=== PATIENT | male | born 1995 | race American Indian/Alaskan Native ===

== ENCOUNTER 2018-06-09 19:31 | Emergency (ER) | payer OTHER ==
[2018-06-09 19:59] LABS: Amphetamine Screen,Urine PRESUMPTIVE NEGATIVE; Benzodiazepines Screen,Urine PRESUMPTIVE NEGATIVE; Cocaine Screen,Urine PRESUMPTIVE NEGATIVE; Methadone Screen,Urine PRESUMPTIVE NEGATIVE; Opiate Screen,Urine PRESUMPTIVE NEGATIVE
[2018-06-09 19:59] LABS: Basophils # (Auto) 0.1 K/mm3 (0.0-0.1); Basophils % (Auto) 1.3 % (0.0-1.8); Eosinophils # (Auto) 0.1 K/mm3 (0.0-0.4); Eosinophils % (Auto) 1.1 % (0.0-4.3); Hematocrit 45.7 % (35.5-45.6); Lymphocytes # (Auto) 2.6 K/mm3 (1.2-5.4); Lymphocytes % (Auto) 41.5 % (13.4-35.0); Mean Corpuscular HGB Conc 33 % (32-34); Mean Corpuscular Volume 94 fl (84-94); Monocytes # (Auto) 0.7 K/mm3 (0.0-0.8); Platelet Count 242 K/mm3 (140-440); Red Blood Count 4.87 M/mm3 (3.65-5.03); Red Cell Distribution Width 14.1 % (13.2-15.2)
--- NOTE | 2018-06-09 19:59 | Emergency Department Report ---
ED General Adult HPI - General Chief complaint: Medical Clearance Stated complaint: MEDICAL CLEARANCE Time Seen by Provider: 06/09/18 19:46 Source: patient, police, RN notes reviewed Mode of arrival: Ambulatory Limitations: Other (the patient is disorganized. The patient appears to be psychotic.) - History of Present Illness Initial comments: This is a 23-year-old male. The patient is not known to this provider previously. The patient is brought to the hospital for medical clearance. He was apparently outside, and was doing either handstands or backflips outside. He also apparently had a needle in his arm. Police department was contacted. A pparently, while in the police car, the patient began taking off his clothes, and started acting bizarrely. He is thus brought to the emergency room by police for evaluation. Currently, no police are available to obtain collateral information. The patient is not accompanied by friends or family. The patient is disorganized. He does not answer most open and close ended questions. He initially indicated that he was giving himself a shot of insulin and with the needle. He then states he does not know who diagnosed him with the need for insulin. Upon open-ended questioning, he admitted that he wanted to hurt himself. He told the nurse that he was also thinking about killing himself. The patient is very disorganized. He will not answer my questions as to whether or not he is having physical pain. He will not answer questions about or hallucinations. The patient is covering his face with his arm. He will follow some commands. The patient is not able to describe exacerbating or relieving factors, qualitative nature of his symptoms, or aggravating factors. -: unknown Radiation: other Quality: other Consistency: other Improves with: other Worsens with: other Associated Symptoms: other - Related Data Allergies Allergy/AdvReac Type Severity Reaction Status Date / Time No Known Allergies Allergy Unverified 06/09/18 19:35 ED Review of Systems ROS: Stated complaint: MEDICAL CLEARANCE Other details as noted in HPI Comment: Unobtainable due to pts medical conditions ED Past Medical Hx - Past Medical History Previous Medical History?: No - Surgical History Past Surgical History?: No - Social History Smoking Status: Current Every Day Smoker Substance Use Type: Alcohol, Marijuana ED Physical Exam - General Limitations: Other (she is disorganized and appears to be psychotic) General appearance: alert, in no apparent distress - Head Head exam: Present: atraumatic, normocephalic - Eye Eye exam: Present: normal appearance, EOMI. Absent: nystagmus - ENT ENT exam: Present: normal exam, normal orophraynx, mucous membranes moist, normal external ear exam - Neck Neck exam: Present: normal inspection, full ROM. Absent: tenderness, meningismus - Respiratory Respiratory exam: Present: normal lung sounds bilaterally. Absent: respiratory distress - Cardiovascular Cardiovascular Exam: Present: normal rhythm, bradycardia, normal heart sounds. Absent: tachycardia, irregular rhythm, systolic murmur, diastolic murmur, rubs, gallop - GI/Abdominal GI/Abdominal exam: Present: soft. Absent: distended, tenderness, guarding, rebound, rigid, pulsatile mass - Rectal Rectal exam: Present: deferred - Extremities Exam Extremities exam: Present: normal inspection, full ROM, other (2+ pulses noted in the bilateral upper, lower extremities. Compartments soft. No long bony ten derness. The pelvis is stable.). Absent: pedal edema, joint swelling, calf tenderness - Back Exam Back exam: Present: normal inspection, full ROM. Absent: tenderness, CVA tenderness (R), paraspinal tenderness, vertebral tenderness - Neurological Exam Neurological exam: Present: alert (the patient is awake. The patient follows commands.), other (there is no facial droop. The tongue is midline. Extraocular movements are intact bilaterally. 5 out of 5 strength in 4 extremities.) - Psychiatric Psychiatric exam: Present: anxious, flat affect, suicidal ideation - Skin Skin exam: Present: warm, dry, intact, normal color. Absent: rash ED Course Vital Signs 06/09/18 19:38 Temperature 98.4 F Pulse Rate 60 Respiratory 15 Rate Blood Pressure 143/71 O2 Sat by Pulse 99 Oximetry ED Medical Decision Making - Lab Data Result diagrams: 06/09/18 19:48 06/09/18 19:47 Vital Signs 06/09/18 19:38 Temperature 98.4 F Pulse Rate 60 Respiratory 15 Rate Blood Pressure 143/71 O2 Sat by Pulse 99 Oximetry Lab Results 06/09/18 06/09/18 06/09/18 Range/Units 19:43 19:43 19:47 WBC (4.5-11.0) K/mm3 RBC (3.65-5.03) M/mm3 Hgb (11.8-15.2) gm/dl Hct (35.5-45.6) % MCV (84-94) fl MCH (28-32) pg MCHC (32-34) % RDW (13.2-15.2) % Plt Count (140-440) K/mm3 Lymph % (Auto) (13.4-35.0) % [place] % (Auto) (0.0-7.3) % Eos % (Auto) (0.0-4.3) % Baso % (Auto) (0.0-1.8) % Lymph # (1.2-5.4) K/mm3 Traverse # (0.0-0.8) K/mm3 Eos # (0.0-0.4) K/mm3 Baso # (0.0-0.1) K/mm3 Seg Neutrophils % (40.0-70.0) % Seg Neutrophils # (1.8-7.7) K/mm3 Sodium (137-145) mmol/L Potassium (3.6-5.0) mmol/L Chloride (98-107) mmol/L Carbon Dioxide (22-30) mmol/L Anion Gap mmol/L BUN (9-20) mg/dL Creatinine (0.8-1.5) mg/dL Estimated GFR ml/min BUN/Creatinine Ratio % Glucose (75-100) mg/dL Calcium (8.4-10.2) mg/dL Total Creatine Kinase (55-170) units/L TSH (0.270-4.200) mlU/mL Urine Color Yellow (Yellow) Urine Turbidity Slightly-cloudy (Clear) Urine pH 6.0 (5.0-7.0) Ur Specific [place] 1.017 (1.003-1.030) Urine Protein <15 mg/dl (Negative) mg/dL Urine Glucose (UA) Neg (Negative) mg/dL Urine Ketones Neg (Negative) mg/dL Urine Blood Neg (Negative) Urine Nitrite Neg (Negative) Urine Bilirubin Neg (Negative) Urine Urobilinogen 4.0 (<2.0) mg/dL Ur Leukocyte Esterase Sm (Negative) Urine WBC (Auto) 7.0 H (0.0-6.0) /HPF Urine RBC (Auto) 4.0 (0.0-6.0) /HPF U Epithel Cells (Auto) 7.0 (0-13.0) /HPF Urine Bacteria (Auto) 2+ (Negative) /HPF Urine Mucus Few /HPF Salicylates < 0.3 L (2.8-20.0) mg/dL Urine Opiates Screen Presumptive negative Urine Methadone Screen Presumptive negative Acetaminophen (10.0-30.0) ug/mL Ur Barbiturates Screen Presumptive negative Ur Phencyclidine Scrn Presumptive negative Ur Amphetamines Screen Presumptive negative U Benzodiazepines Scrn Presumptive negative Urine Cocaine Screen Presumptive negative U Marijuana (THC) Screen Presumptive positive Drugs of Abuse Note Disclamer Plasma/Serum Alcohol (0-0.07) % 06/09/18 06/09/18 06/09/18 Range/Units 19:47 19:47 19:47 WBC (4.5-11.0) K/mm3 RBC (3.65-5.03) M/mm3 Hgb (11.8-15.2) gm/dl Hct (35.5-45.6) % MCV (84-94) fl MCH (28-32) pg MCHC (32-34) % RDW (13.2-15.2) % Plt Count (140-440) K/mm3 Lymph % (Auto) (13.4-35.0) % Traverse % (Auto) (0.0-7.3) % Eos % (Auto) (0.0-4.3) % Baso % (Auto) (0.0-1.8) % Lymph # (1.2-5.4) K/mm3 Traverse # (0.0-0.8) K/mm3 Eos # (0.0-0.4) K/mm3 Baso # (0.0-0.1) K/mm3 Seg Neutrophils % (40.0-70.0) % Seg Neutrophils # (1.8-7.7) K/mm3 Sodium 138 (137-145) mmol/L Potassium 4.1 (3.6-5.0) mmol/L Chloride 103.4 (98-107) mmol/L Carbon Dioxide 24 (22-30) mmol/L Anion Gap 15 mmol/L BUN 10 (9-20) mg/dL Creatinine 0.9 (0.8-1.5) mg/dL Estimated GFR > 60 ml/min BUN/Creatinine Ratio 11 % Glucose 85 (75-100) mg/dL Calcium 9.3 (8.4-10.2) mg/dL Total Creatine Kinase (55-170) units/L TSH (0.270-4.200) mlU/mL Urine Color (Yellow) Urine Turbidity (Clear) Urine pH (5.0-7.0) Ur Specific [place] (1.003-1.030) Urine Protein (Negative) mg/dL Urine Glucose (UA) (Negative) mg/dL Urine Ketones (Negative) mg/dL Urine Blood (Negative) Urine Nitrite (Negative) Urine Bilirubin (Negative) Urine Urobilinogen (<2.0) mg/dL Ur Leukocyte Esterase (Negative) Urine WBC (Auto) (0.0-6.0) /HPF Urine RBC (Auto) (0.0-6.0) /HPF U Epithel Cells (Auto) (0-13.0) /HPF Urine Bacteria (Auto) (Negative) /HPF Urine Mucus /HPF Salicylates (2.8-20.0) mg/dL Urine Opiates Screen Urine Methadone Screen Acetaminophen < 5.0 L (10.0-30.0) ug/mL Ur Barbiturates Screen Ur Phencyclidine Scrn Ur Amphetamines Screen U Benzodiazepines Scrn Urine Cocaine Screen U Marijuana (THC) Screen Drugs of Abuse Note Plasma/Serum Alcohol < 0.01 (0-0.07) % 06/09/18 06/09/18 06/09/18 Range/Units 19:48 19:54 19:54 WBC 6.2 (4.5-11.0) K/mm3 RBC 4.87 (3.65-5.03) M/mm3 Hgb 15.0 (11.8-15.2) gm/dl Hct 45.7 H (35.5-45.6) % MCV 94 (84-94) fl MCH 31 (28-32) pg MCHC 33 (32-34) % RDW 14.1 (13.2-15.2) % Plt Count 242 (140-440) K/mm3 Lymph % (Auto) 41.5 H (13.4-35.0) % Traverse % (Auto) 11.0 H (0.0-7.3) % Eos % (Auto) 1.1 (0.0-4.3) % Baso % (Auto) 1.3 (0.0-1.8) % Lymph # 2.6 (1.2-5.4) K/mm3 [place] # 0.7 (0.0-0.8) K/mm3 Eos # 0.1 (0.0-0.4) K/mm3 Baso # 0.1 (0.0-0.1) K/mm3 Seg Neutrophils % 45.1 (40.0-70.0) % Seg Neutrophils # 2.8 (1.8-7.7) K/mm3 Sodium (137-145) mmol/L Potassium (3.6-5.0) mmol/L Chloride (98-107) mmol/L Carbon Dioxide (22-30) mmol/L Anion Gap mmol/L BUN (9-20) mg/dL Creatinine (0.8-1.5) mg/dL Estimated GFR ml/min BUN/Creatinine Ratio % Glucose (75-100) mg/dL Calcium (8.4-10.2) mg/dL Total Creatine Kinase 357 H (55-170) units/L TSH 1.450 (0.270-4.200) mlU/mL Urine Color (Yellow) Urine Turbidity (Clear) Urine pH (5.0-7.0) Ur Specific [place] (1.003-1.030) Urine Protein (Negative) mg/dL Urine Glucose (UA) (Negative) mg/dL Urine Ketones (Negative) mg/dL Urine Blood (Negative) Urine Nitrite (Negative) Urine Bilirubin (Negative) Urine Urobilinogen (<2.0) mg/dL Ur Leukocyte Esterase (Negative) Urine WBC (Auto) (0.0-6.0) /HPF Urine RBC (Auto) (0.0-6.0) /HPF U Epithel Cells (Auto) (0-13.0) /HPF Urine Bacteria (Auto) (Negative) /HPF Urine Mucus /HPF Salicylates (2.8-20.0) mg/dL Urine Opiates Screen Urine Methadone Screen Acetaminophen (10.0-30.0) ug/mL Ur Barbiturates Screen Ur Phencyclidine Scrn Ur Amphetamines Screen U Benzodiazepines Scrn Urine Cocaine Screen U Marijuana (THC) Screen Drugs of Abuse Note Plasma/Serum Alcohol (0-0.07) % - EKG Data -: EKG Interpreted by Me EKG shows normal: sinus rhythm Rate: bradycardia - EKG Data When compared to previous EKG there are: previous EKG unavailable 06/09/18 21:23 This is a sinus bradycardia, with a borderline rightward axis deviation, early repolarization, high left ventricular voltage, this is an age-appropriate, demographic be appropriate EKG, this EKG is not consistent with ST elevation myocardial infarction. There is no prior EKG available. - Radiology Data Radiology results: report reviewed, image reviewed Noncontrast CT scan of the brain is negative for acute disease. - Medical Decision Making Differential diagnosis, including but not limited to: Psychosis, medical clearance for psychiatric placement Assessment and plan: 23-year-old gentleman with bizarre behavior, nonsensical thought pattern, articulated desire to harm himself, clearly suicidal, clearly cannot care for himself, requires 1013. I suspect a drug-induced psychosis. The patient is afebrile with reassuring vital signs. His screening laboratory studies are unremarkable. Urinalysis reviewed and appreciated. This is most likely either gonorrhea or chlamydia, given his young age. Cultures will be sent, he'll be covered empirically, a psychiatric consultation has been requested, at this point in time, the patient does not appear to have an immediate medical contraindication to psychiatric admission, evaluation, consultation and placement. CK is reviewed and appreciated, this does not meet the definition criteria for rhabdomyolysis, he has normal renal function, he has soft muscular compartments, and this will decrease on its own with oral hydration. This does not require repeat check at this point in time. Critical care attestation.: If time is entered above; I have spent that time in minutes in the direct care o f this critically ill patient, excluding procedure time. ED Disposition Clinical Impression: Psychosis Disposition: DC/TX-65 PSY HOSP/PSY UNIT Is pt being admited?: No Does the pt Need Aspirin: No Condition: Good Referrals: BRISEIDA FUNEZ MD [Primary Care Provider] - 3-5 Days
[2018-06-09 20:00] LABS: Bacteria,Urine 2+ /HPF (Negative); Bilirubin,Urine NEG (Negative); Blood,Urine NEG (Negative); Color,Urine Yellow (Yellow); Mucus,Urine FEW /HPF; Protein,Urine <15 mg/dL mg/dL (Negative)
[2018-06-09 20:16] LABS: Cannabinoid Screen,Urine PRESUMPTIVE POSITIVE
[2018-06-09 20:31] LABS: BUN/Creatinine Ratio 11; Blood Urea Nitrogen 10 mg/dL (9-20); Calcium 9.3 mg/dL (8.4-10.2); Hemolysis Index 19
--- NOTE | 2018-06-09 20:51 | Cat Scan Report ---
CT HEAD/BRAIN WO CON CLINICAL INDICATION: Male, 23 years of age. ams COMPARISON: None TECHNIQUE: Contiguous axial images were obtained from the vertex through the skull base.This CT exam was perform ed using one or more of the following dose reduction techniques: automated exposure control, adjustme nt of the mA and/or kV according to patient size, or use of iterative reconstruction technique. FINDINGS: No acute intracranial hemorrhage, midline shift, or extra-axial fluid collection. Ventricles and cis terns are normal in size and configuration for the patient's age. Hernandez white differentiation is main tained. Calvarium is grossly intact. Ocular globes are grossly unremarkable. Visualized paranasal sinuses and mastoid air cells are grossly clear. IMPRESSION: No grossly acute intracranial abnormality. This document is electronically signed by Alvino Frey DO., June 09 2018 08:49:13 PM ET
[2018-06-09] MEDS ORDERED: ROCEPHIN IM ONE (21:17)
[2018-06-09] MEDS ORDERED: XYLOCAINE 1% MPF 5 mL INFILTRATI ONE (21:17)
[2018-06-09] MEDS ORDERED: ZITHROMAX PO ONE (21:17)
--- NOTE | 2018-06-10 08:17 | Consultation ---
History of Present Illness - Reason for Consult Consult date: 06/10/18 Reason for consult: Mental Health Evaluation Requesting physician: FRANCHESKA WILLIAMSON - Chief Complaint Chief complaint: "The is nonverbal at this time" - History of Present Psychiatric Illness 23 y.o. AA male who presented to the ER for bizarre behavior. Today the patient refused to talk during the assessment. No gestures of SI/HI's. Medications and Allergies Allergies Allergy/AdvReac Type Severity Reaction Status Date / Time No Known Allergies Allergy Unverified 06/09/18 19:35 Home Medications Medication Instructions Recorded Confirmed Last Taken Type Unobtainable 06/10/18 06/10/18 Unknown History Active Meds: Active Medications Haloperidol Lactate (Haldol) 5 mg IM Q6HR PRN PRN Reason: Agitation Lorazepam (Ativan) 2 mg IM Q4HR PRN PRN Reason: Agitation Past psychiatric history - Past Medical History Past Medical History: other (Unable to obtain ) Past Surgical History: Other (Unable to obtain ) - past Psychiatric treatment and history psychiatric treatment history: Unable to obtain a psy hx and fam psy hx. - Social History Social history: other (Unable to obtain) Mental Status Exam - Vital signs Last Vital Signs Temp 98.8 F 06/10/18 04:00 Pulse 55 L 06/10/18 04:00 Resp 20 06/10/18 04:00 BP 113/66 06/10/18 04:00 Pulse Ox 99 06/10/18 04:00 - Exam Narrative exam: Unable to complete the MSE because of the patient refuse to cooperate. Results Result Diagrams: 06/09/18 19:48 06/09/18 19:47 Abnormal lab results 06/09/18 06/09/18 06/09/18 Range/Units 19:43 19:47 19:47 Hct (35.5-45.6) % Lymph % (Auto) (13.4-35.0) % Glenn % (Auto) (0.0-7.3) % Total Creatine Kinase (55-170) units/L Urine WBC (Auto) 7.0 H (0.0-6.0) /HPF Salicylates < 0.3 L (2.8-20.0) mg/dL Acetaminophen < 5.0 L (10.0-30.0) ug/mL 06/09/18 06/09/18 Range/Units 19:48 19:54 Hct 45.7 H (35.5-45.6) % Lymph % (Auto) 41.5 H (13.4-35.0) % Glenn % (Auto) 11.0 H (0.0-7.3) % Total Creatine Kinase 357 H (55-170) units/L Urine WBC (Auto) (0.0-6.0) /HPF Salicylates (2.8-20.0) mg/dL Acetaminophen (10.0-30.0) ug/mL All other labs normal. Assessment and Plan Assessment and plan: Impression: Today the patient refuse to talk during the assessment. Recommendation/Plan: Continue 1013 and reassess the patient in 24 hours. Dispo: The patient will be referred to inpatient psy services. Will staff with Dr Sandra Romeo.
[2018-06-10] MEDS: HALDOL IM PRN (10:55)
[2018-06-10] MEDS: ATIVAN IM PRN (10:57)
[2018-06-11] MEDS: HALDOL IM PRN (09:46)
[2018-06-11] MEDS: ATIVAN IM PRN (09:46)
--- NOTE | 2018-06-11 16:00 | Progress Note ---
Subjective - Reason for Consult Consult date: 06/11/18 Reason for consult: Psychiatry Follow-up - Chief Complaint Chief complaint: "I am okay" 23 y.o. AA male who presented to the ER for bizarre behavior. Today the patient is calm during the assessment. He appeared to be preoccupied throughout the interview. He pauses for several seconds before he answers questions, possible responding to some type of stimuli. He denies SI/HI's and VH's. He would confirm or deny AH's when asked. 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 Today the patient is calm during the assessment. The patient is experiencing perceptual disturbances. DDx: Substance Induced Psychosis Recommendation/Plan: Continue 1013 and start Zyprexa 2.5 mg Po HS for psychosis. Discussed possible metabolic side effects of Zyprexa with the shweta. leela Dispo: The patient will be referred to inpatient psy services. Will staff with Dr Sandra Romeo.
--- NOTE | 2018-06-12 14:17 | Progress Note ---
Subjective - Reason for Consult Consult date: 06/12/18 Reason for consult: Psychiatric Follow-up Evaluation - Chief Complaint Chief complaint: " a little tired" Patient is a 23 y.o. AA male who presented to the ER for bizarre behavior. Today the patient is calm during the assessment. He appears to be lethargic and has to be awaken several times throughout the assessment. Patient responses to questions are delayed/hesitant. He appeared to be preoccupied throughout the interview. Patient is guarded/withdrawn. He denies SI/HI's and VH's. 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 Today the patient is calm during the assessment. The patient is experiencing perceptual disturbances. He appears guarded, withdrawn, and internally preoccupied. Thought content impoverished. DDx: Substance Induced Psychosis Recommendation/Plan: 1. Continue 1013. 2. Continue Zyprexa 2.5 mg Po HS for psychosis. Discussed possible metabolic side effects of Zyprexa with the patients. Disposition: The patient will be referred to inpatient psychiatric services. Will staff with Dr. Sandra Romeo.
[2018-06-12] MEDS: ATIVAN IM PRN (15:10)
[2018-06-12] MEDS: HALDOL IM PRN (15:10)
[2018-06-13 03:26] VITALS: BP 110/80
== END 2018-06-13 03:25 ==
LOC: EEVIPCON 19:31 → ED 19:31
DX: F23 Brief psychotic disorder (principal); F17.200 Nicotine dependence, unspecified, uncomplicated; F12.10 Cannabis abuse, uncomplicated
CPT/HCPCS: 36415; 70450; 80048; 80307; 81001; 82550; 84443; 85025; 87086; 87591; 93005; 93010; 96372; 99285; G0480; J0696; J1630; J2060; 80320

== ENCOUNTER 2020-05-20 17:20 | Emergency (ER) | payer OTHER ==
[2020-05-20] MEDS ORDERED: LORazepam 2 MG/ML VIAL IM PRN (17:29)
[2020-05-20] MEDS ORDERED: HALOPERIDOL LACTATE 5 MG/1 ML INJ IM PRN (17:29)
--- NOTE | 2020-05-20 17:31 | Emergency Department Report ---
ED General Adult HPI - General Chief complaint: Psych Stated complaint: im fine why are you here? PUI?: No Time Seen by Provider: 05/20/20 17:29 Source: patient, EMS (Verbal report received from emergency medical services. EMS documentation not available at time of chart dictation ), RN notes reviewed Mode of arrival: Stretcher Limitations: Other (Disorganized behavior.) - History of Present Illness Initial comments: The patient was evaluated in the emergency department for symptoms described in the history of present illness. He/she was evaluated in the context of the global COVID-19 pandemic, which necessitated consideration that the patient might be at risk for infection with the virus that causes COVID-19. Institu tional protocols and algorithms that pertain to the evaluation of patients at risk for COVID-19 are in a state of rapid change based on information released by regulatory bodies including the CDC and federal and state organizations. These policies and algorithms were followed during the patient's care in the emergency department. Please note that these policies, procedures and recommendations changed on a rapid basis. This is a 25-year-old gentleman. I have evaluated this patient in the past. 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 The patient is brought to the hospital today by emergency medical services. EMS reports that they were contacted by [facility]. The patient is disorganized. He told me he is suicidal. He denies physical pain. He reports that he feels very anxious. He denies loss of taste and smell. He tells me that he is chronically suicidal. He tells me that he has tried to overdose on Cymbalta in the past. This patient has been on a 1013 in the past. I evaluated this patient in 2019 for presumed substance-induced psychosis. At that time, he had an unremarkable medical work-up. The patient is disorganized and psychotic, therefore, has difficulty describing the qualitative nature of his symptoms, exacerbating factors, relieving factors, or aggravating factors. This patient is not accompanied by friends or family at this time for collateral information. The patient denies physical pain at this time. He is asking to eat. -: unknown Radiation: other Quality: other Consistency: other Improves with: other Worsens with: other Associated Symptoms: other - Related Data Home Medications Medication Instructions Recorded Confirmed Last Taken buPROPion XL [Wellbutrin Xl] 150 mg PO QAM 05/20/20 05/20/20 Unknown Allergies Allergy/AdvReac Type Severity Reaction Status Date / Time No Known Allergies Allergy Unverified 06/09/18 19:35 ED Review of Systems ROS: Stated complaint: MH EVAL Other details as noted in HPI Comment: Unobtainable due to pts medical conditions (Disorganized behavior) Constitutional: denies: fever Respiratory: denies: cough Cardiovascular: denies: chest pain Gastrointestinal: denies: abdominal pain Psychiatric: anxiety, suicidal thoughts ED Past Medical Hx - Social History Smoking Status: Current Every Day Smoker Substance Use Type: Alcohol, Marijuana - Medications Home Medications: Home Medications Medication Instructions Recorded Confirmed Last Taken Type buPROPion XL [Wellbutrin Xl] 150 mg PO QAM 05/20/20 05/20/20 Unknown History ED Physical Exam - General Limitations: Other (Disorganized behavior) General appearance: anxious - Head Head exam: Present: atraumatic, normocephalic - Eye Eye exam: Present: normal appearance, PERRL, EOMI - ENT ENT exam: Present: normal exam, normal orophraynx, mucous membranes moist, normal external ear exam - Neck Neck exam: Present: normal inspection, full ROM. Absent: tenderness, meningismus - Respiratory Respiratory exam: Present: normal lung sounds bilaterally. Absent: respiratory distress, wheezes, rales, rhonchi, stridor, decreased breath sounds - Cardiovascular Cardiovascular Exam: Present: regular rate, normal rhythm, normal heart sounds. Absent: bradycardia, tachycardia, irregular rhythm, systolic murmur, diastolic murmur, rubs, gallop - GI/Abdominal GI/Abdominal exam: Present: soft. Absent: distended, tenderness, guarding, rebound, rigid, pulsatile mass - Rectal Rectal exam: Present: deferred - Extremities Exam Extremities exam: Present: normal inspection, full ROM, other (2+ pulses noted in the bilateral upper and lower extremities. There is no palpable cord. negative Homans sign. Muscular compartments are soft. The pelvis is stable.). Absent: pedal edema, calf tenderness - Back Exam Back exam: Present: normal inspection, full ROM. Absent: tenderness, CVA tenderness (R), CVA tenderness (L), paraspinal tenderness, vertebral tenderness - Neurological Exam Neurological exam: Present: alert, normal gait, other (No facial droop. Tongue midline. Extraocular movements intact bilaterally. Facial sensation intact to light touch in V1, V2, V3 distribution bilaterally. 5 and a 5 strength in 4 extremities. Sensation intact to light touch in 4 extremities.). Absent: motor sensory deficit - Psychiatric Psychiatric exam: Present: anxious, flat affect, suicidal ideation - Skin Skin exam: Present: warm, dry, intact, normal color. Absent: rash ED Course Vital Signs 05/20/20 05/20/20 18:15 19:30 Temperature 98.5 F 98.3 F Pulse Rate 65 60 Respiratory 16 18 Rate Blood Pressure 120/55 127/67 [Left] O2 Sat by Pulse 100 100 Oximetry - Reevaluation(s) Reevaluation #1: 05/20/20 18:42 Differential diagnosis, including but not limited to: Psychosis, medical clearance for psychiatric placement, disorganized behavior Assessment and plan: 25-year-old gentleman with bizarre affect, disorganized behavior, endorsement of suicidality, history of substance-induced psychosis, who is presenting likely with recurrent psychosis. Patient placed on hold status. Psychiatric consultation is requested. Appropriate laboratory studies ordered. EKG unremarkable. Physical examination unremarkable. Coronavirus testing ordered in anticipation of psychiatric placement. Reevaluation #2: 05/20/20 19:27 Laboratory studies unremarkable. Urinalysis pending. At this point in time, patient does not appear to have an immediate medical contraindication to psychiatric admission, evaluation, consultation and placement. Awaiting urinalysis and mental health evaluation. ED Medical Decision Making - Lab Data Result diagrams: 05/20/20 17:54 05/20/20 17:54 Vital Signs 05/20/20 18:15 Temperature 98.5 F Pulse Rate 65 Respiratory 16 Rate Blood Pressure 120/55 [Left] O2 Sat by Pulse 100 Oximetry Lab Results 05/20/20 05/20/20 Range/Units 17:54 17:54 WBC 5.7 (4.5-11.0) K/mm3 RBC 4.83 (3.65-5.03) M/mm3 Hgb 15.2 (11.8-15.2) gm/dl Hct 44.6 (35.5-45.6) % MCV 92 (84-94) fl MCH 32 (28-32) pg MCHC 34 (32-34) % RDW 13.2 (13.2-15.2) % Plt Count 190 (140-440) K/mm3 Sodium 137 (137-145) mmol/L Potassium 4.0 (3.6-5.0) mmol/L Chloride 102.5 (98-107) mmol/L Carbon Dioxide 24 (22-30) mmol/L Anion Gap 15 mmol/L BUN 11 (9-20) mg/dL Creatinine 1.0 (0.8-1.3) mg/dL Estimated GFR > 60 ml/min BUN/Creatinine Ratio 11 % Glucose 83 (75-100) mg/dL Calcium 9.3 (8.4-10.2) mg/dL Magnesium 1.80 (1.7-2.3) mg/dL Total Creatine Kinase 148 (55-170) units/L Vital Signs 05/20/20 18:15 Temperature 98.5 F Pulse Rate 65 Respiratory 16 Rate Blood Pressure 120/55 [Left] O2 Sat by Pulse 100 Oximetry Lab Results 05/20/20 05/20/20 05/20/20 Range/Units 17:54 17:54 17:54 WBC 5.7 (4.5-11.0) K/mm3 RBC 4.83 (3.65-5.03) M/mm3 Hgb 15.2 (11.8-15.2) gm/dl Hct 44.6 (35.5-45.6) % MCV 92 (84-94) fl MCH 32 (28-32) pg MCHC 34 (32-34) % RDW 13.2 (13.2-15.2) % Plt Count 190 (140-440) K/mm3 Sodium 137 (137-145) mmol/L Potassium 4.0 (3.6-5.0) mmol/L Chloride 102.5 (98-107) mmol/L Carbon Dioxide 24 (22-30) mmol/L Anion Gap 15 mmol/L BUN 11 (9-20) mg/dL Creatinine 1.0 (0.8-1.3) mg/dL Estimated GFR > 60 ml/min BUN/Creatinine Ratio 11 % Glucose 83 (75-100) mg/dL Calcium 9.3 (8.4-10.2) mg/dL Magnesium 1.80 (1.7-2.3) mg/dL Total Creatine Kinase 148 (55-170) units/L Salicylates < 0.3 L (2.8-20.0) mg/dL Acetaminophen (10.0-30.0) ug/mL [place] (0.0-1.2) mmol/L Plasma/Serum Alcohol (0-0.07) % 05/20/20 05/20/20 05/20/20 Range/Units 17:54 17:54 17:54 WBC (4.5-11.0) K/mm3 RBC (3.65-5.03) M/mm3 Hgb (11.8-15.2) gm/dl Hct (35.5-45.6) % MCV (84-94) fl MCH (28-32) pg MCHC (32-34) % RDW (13.2-15.2) % Plt Count (140-440) K/mm3 Sodium (137-145) mmol/L Potassium (3.6-5.0) mmol/L Chloride (98-107) mmol/L Carbon Dioxide (22-30) mmol/L Anion Gap mmol/L BUN (9-20) mg/dL Creatinine (0.8-1.3) mg/dL Estimated GFR ml/min BUN/Creatinine Ratio % Glucose (75-100) mg/dL Calcium (8.4-10.2) mg/dL Magnesium (1.7-2.3) mg/dL Total Creatine Kinase (55-170) units/L Salicylates (2.8-20.0) mg/dL Acetaminophen 5.0 L (10.0-30.0) ug/mL [place] 0.1 (0.0-1.2) mmol/L Plasma/Serum Alcohol < 0.01 (0-0.07) % - EKG Data -: EKG Interpreted by Oh EKG shows normal: sinus rhythm Rate: normal - EKG Data 05/20/20 18:41 EKG today shows sinus rhythm, bradycardia, 56 bpm. Normal/borderline rightward axis deviation, high left ventricular voltage/early repolarization. Intervals within normal limits. This is an abnormal EKG. This is not a STEMI. Time of EKG interpretation, 18: 28 Critical care attestation.: If time is entered above; I have spent that time in minutes in the direct care of this critically ill patient, excluding procedure time. ED Disposition Clinical Impression: Medical clearance for psychiatric admission, Disorganized behavior Disposition: [id number]/TX-65 PSY HOSP/PSY UNIT Is pt being admited?: No Does the pt Need Aspirin: No Condition: Good Referrals: PRIMARY CARE, [Primary Care Provider] - 3-5 Days
[2020-05-20 18:06] LABS: Hematocrit 44.6 % (35.5-45.6); Hemoglobin 15.2 gm/dl (11.8-15.2); Mean Corpuscular HGB Conc 34 % (32-34); Mean Corpuscular Volume 92 fl (84-94); Platelet Count 190 K/mm3 (140-440); Red Blood Count 4.83 M/mm3 (3.65-5.03); Red Cell Distribution Width 13.2 % (13.2-15.2)
[2020-05-20 18:29] LABS: BUN/Creatinine Ratio 11; Blood Urea Nitrogen 11 mg/dL (9-20); Calcium 9.3 mg/dL (8.4-10.2); Hemolysis Index 13
[2020-05-21 00:42] LABS: Amphetamine Screen,Urine PRESUMPTIVE NEGATIVE; Benzodiazepines Screen,Urine PRESUMPTIVE NEGATIVE; Cannabinoid Screen,Urine PRESUMPTIVE NEGATIVE; Cocaine Screen,Urine PRESUMPTIVE NEGATIVE; Methadone Screen,Urine PRESUMPTIVE NEGATIVE; Opiate Screen,Urine PRESUMPTIVE NEGATIVE
[2020-05-21 01:06] LABS: Bacteria,Urine 1+ /HPF (Negative); Bilirubin,Urine NEG (Negative); Blood,Urine NEG (Negative); Color,Urine Yellow (Yellow); Mucus,Urine FEW /HPF; Protein,Urine <15 mg/dL mg/dL (Negative)
[2020-05-21 10:41] VITALS: BP 139/85
--- NOTE | 2020-05-21 11:30 | Electrocardiograph Report ---
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
--- NOTE | 2020-05-21 11:32 | Consultation ---
History of Present Illness - Reason for Consult Consult date: 05/21/20 Reason for consult: stopped taking meds - History of Present Psychiatric Illness Per ED Note: This is a 25-year-old gentleman. I have evaluated this patient in the past. 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 The patient is brought to the hospital today by emergency medical services. EMS reports that they were contacted by [facility]. The patient is disorganized. He told me he is suicidal. He denies physical pain. He reports that he feels very anxious. He denies loss of taste and smell. He tells me that he is chronically suicidal. He tells me that he has tried to overdose on Cymbalta in the past. This patient has been on a 1013 in the past. I evaluated this patient in 2019 for presumed substance-induced psychosis. At that time, he had an unremarkable medical work-up. The patient is disorganized and psychotic, therefore, has difficulty describing the qualitative nature of his symptoms, exacerbating factors, relieving factors, or aggravating factors. This patient is not accompanied by friends or family at this time for collateral information. The patient denies physical pain at this time. He is asking to eat. During my assessment with 25y/o [place], he is lying down asleep. He easily arouses. The patient is calm, and cooperative. He does appear to be responding to internal stimuli. His eyes are bucked. He says he's "been feeling suicidal over the weekend." The patient says "not really now." He says "I was off my meds because it was my birthday and I wanted to drink and celebrate my birthday." The patient says he "used to drink in the past but not that much now." He denies illicit drug use. He also denies hallucinations. PAST PSYCHIATRIC HISTORY: Diagnoses: bipolar Suicide attempts or Self-harm behavior: Denies Prior psychiatric hospitalizations: Yes Substance Abuse history: Denies Previous psychiatric medications tried: couldn't recall Outpatient treatment: Yes PAST MEDICAL HISTORY: None reported Family Psychiatric History: None reported or documented SOCIAL HISTORY Marital Status: single Living Arrangements: alone Employment Status: Employed Access to guns/weapons: Denies Education: high school History of Abuse: Denies Legal History: Denies REVIEW OF SYSTEMS Constitutional: Negative for weight loss ENT: Negative for stridor Respiratory: Negative for cough or hemoptysis All other systems reviewed and are negative MENTAL STATUS EXAMINATION General Appearance and Behavior: Age appropriate, good hygiene, not wearing appropriate clothes, good eye contact, cooperative polite with questioning. Cooperation: Participating/engaged Psychomotor Behavior: Psychomotor normal Mood: "okay" Affect and affective range: restricted Thought Process: responding to internal stimuli Speech: pressured, loud volume at times Intellectual Functioning: Average Thought Content Suicidal Ideation: Unclear Homicidal Ideation: Denies Hallucinations: Yes Delusions: None elicited Impulse Control: Impaired Insight and Judgment: Limited insight and judgment Memory: Normal Attention: Divided attention impaired Orientation: A/o x 3 Assessment and Plan (1) Bipolar Features Current Visit: Yes Status: Acute Treatment Plan 1013 Risperidone 0.25mg po BID Depakote DR 125mg po BID Trazodone 50mg po qhs Sitter: Defer to primary Medical: Per primary Disposition: Recommend acute psychiatric inpatient treatment Will follow. Thank you for this consult. Case staffed with Dr. Fischer Medications and Allergies Allergies Allergy/AdvReac Type Severity Reaction Status Date / Time No Known Allergies Allergy Unverified 06/09/18 19:35 Home Medications Medication Instructions Recorded Confirmed Last Taken Type buPROPion XL [Wellbutrin Xl] 150 mg PO QAM 05/20/20 05/20/20 Unknown History Active Meds: Active Medications Haloperidol Lactate (Haloperidol Lactate 5 Mg/1 Ml Inj) 5 mg IM Q6HR PRN PRN Reason: Agitation Lorazepam (Lorazepam 2 Mg/Ml Vial) 2 mg IM Q4HR PRN PRN Reason: Agitation Mental Status Exam - Vital signs Last Vital Signs Temp 97.7 F 05/21/20 10:22 Pulse 58 L 05/21/20 10:22 Resp 18 05/21/20 10:22 BP 139/85 05/21/20 10:22 Pulse Ox 100 05/21/20 10:22 Results Result Diagrams: 05/20/20 17:54 05/20/20 17:54 Abnormal lab results 05/20/20 05/20/20 Range/Units 17:54 17:54 Salicylates < 0.3 L (2.8-20.0) mg/dL Acetaminophen 5.0 L (10.0-30.0) ug/mL All other labs normal.
[2020-05-21] MEDS ORDERED: DIVALPROEX DR 125 MG TAB PO SCH (12:00)
[2020-05-21] MEDS ORDERED: risperiDONE 0.25 MG TAB PO SCH (12:00)
[2020-05-21] MEDS ORDERED: traZODone 50 MG TAB PO SCH (22:00)
== END 2020-05-21 20:00 ==
LOC: ED 17:20
DX: F20.1 Disorganized schizophrenia (principal); F17.200 Nicotine dependence, unspecified, uncomplicated; F12.10 Cannabis abuse, uncomplicated; Z04.6 Encounter for general psychiatric examination, requested by authority; Z79.899 Other long term (current) drug therapy; Z20.822 Contact with and (suspected) exposure to COVID-19
CPT/HCPCS: 36415; 80048; 80178; 80307; 81001; 82550; 83735; 85027; 93005; 99285; U0003; 80320; G0480